=== PATIENT | female | born 1980 | race Caucasian/White ===

== ENCOUNTER 2020-07-03 08:52 | Inpatient (IN) | payer OTHER ==
[~2020-07-03] VITALS: Ht 165.1 cm; Wt 72.5 kg
--- NOTE | 2020-07-03 09:28 | NUR ---
PATIENT WAS GETTING READY FOR WORK AND FELT DIZZY/WEAK NAUSEATED.
--- NOTE | 2020-07-03 09:48 | NUR ---
PATIENT IS WEAK. ORIENTED. HYPOTENSIVE, MD AWARE GETTING FLUIDS ON MONITOR.
[2020-07-03] MEDS ORDERED: SODIUM CHLORIDE 0.9% 1,000ML IVBOLUS ONE ×2 (10:00→11:30)
--- NOTE | 2020-07-03 10:00 | NUR ---
PATIENT CHILLY, PLACED ON BEDSIDE WARMER AND BLANKETS APPLIED
[2020-07-03 10:21] LABS: BASOPHILS % (AUTO) 0 % (0-1); EOSINOPHILS % (AUTO) 1 % (1-7); LYMPHOCYTES % (AUTO) 8 % (22-44); MEAN CORPUSCULAR HEMOGLOBIN 28.1 pg (27.0-34.8); MEAN CORPUSCULAR HGB CONC 32.8 g/dL (32.4-35.8); MEAN PLATELET VOLUME 8.6 fL (7.4-10.4); MONOCYTES % (AUTO) 4 % (2-9); NEUTROPHILS % (AUTO) 88 % (42-75); PLATELET COUNT 502 x10^3/uL (130-400); RED BLOOD COUNT 5.26 x10^6/uL (3.82-5.3); RED CELL DISTRIBUTION WIDTH 16.4 % (9.6-15.2)
[2020-07-03 10:23] LABS: MD NO
[2020-07-03 10:28] LABS: ALBUMIN 3.9 g/dL (3.4-5.0); ANION GAP 16 mmol/L (5-15); CHLORIDE 100 mmol/L (98-107)
[2020-07-03 10:34] LABS: ALKALINE PHOSPHATASE 222 U/L (45-117); BILIRUBIN,TOTAL 3.3 mg/dL (0.2-1.0); CREATININE 1.06 mg/dL (0.55-1.02); TOTAL PROTEIN 8.1 g/dL (6.4-8.2); TROPONIN I < 0.015 ng/mL (0.000-0.045)
[2020-07-03 10:36] LABS: ALANINE AMINOTRANSFERASE 1890 U/L (12-78)
[2020-07-03 11:28] LABS: BASOPHILS % (AUTO) 1 % (0-1); EOSINOPHILS % (AUTO) 0 % (1-7); LYMPHOCYTES % (AUTO) 5 % (22-44); MEAN CORPUSCULAR HEMOGLOBIN 27.9 pg (27.0-34.8); MEAN CORPUSCULAR HGB CONC 32.7 g/dL (32.4-35.8); MEAN PLATELET VOLUME 8.1 fL (7.4-10.4); MONOCYTES % (AUTO) 8 % (2-9); NEUTROPHILS % (AUTO) 86 % (42-75); PLATELET COUNT 445 x10^3/uL (130-400); RED BLOOD COUNT 4.37 x10^6/uL (3.82-5.3); RED CELL DISTRIBUTION WIDTH 16.4 % (9.6-15.2)
[2020-07-03 11:30] LABS: MD NO
--- NOTE | 2020-07-03 11:37 | NUR ---
ultrasound at bedside
[2020-07-03] MEDS ORDERED: DEXTROSE 5% IV ONE ×3 (13:30→19:30)
[2020-07-03] MEDS ORDERED: ACETYLCYSTEINE IV ONE ×3 (13:30→19:30)
--- NOTE | 2020-07-03 13:41 | NUR ---
provider here admitting patient. patient states she has been taking nsaids for years, and recently her headaches worse so she has been taking up to 2 g a day of tylenol. patient aox4, states feeling better.
--- NOTE | 2020-07-03 13:51 | NUR ---
requested acetylcistiene gtt from pharmacy
[2020-07-03] MEDS: LACTATED RINGERS 1,000 ML IV SCH ×2 (14:00→20:40)
[2020-07-03] MEDS ORDERED: SUMATRIPTAN 25 MG TABLET PO PRN (14:00)
[2020-07-03] MEDS ORDERED: METOCLOPRAMIDE 5 MG/ML, 2ML IVPush PRN (14:00)
[2020-07-03] MEDS ORDERED: ENOXAPARIN 40 MG/0.4 ML ONE (14:30)
[2020-07-03] MEDS: ENOXAPARIN 40 MG/0.4 ML SQ SCH (14:33)
[2020-07-03] MEDS ORDERED: METOCLOPRAMIDE 5 MG/ML, 2ML ONE (14:40)
--- NOTE | 2020-07-03 14:44 | NUR ---
got patient a sandwich as requested, then she had abdominal pain. called md toth for medications and she said to just give reglan. will give reglan.
[2020-07-03 14:47] LABS: C-REACTIVE PROTEIN, QUANT 0.54 mg/dL (0.02-0.49)
--- NOTE | 2020-07-03 14:49 | NUR ---
pt has history of taking nishi per gi chart per md
--- NOTE | 2020-07-03 15:42 | NUR ---
pt to rad via [facility]
--- NOTE | 2020-07-03 15:59 | NUR ---
ordered hospital bed
--- NOTE | 2020-07-03 16:07 | NUR ---
patient on hospital bed
--- NOTE | 2020-07-03 17:36 | NUR ---
got patient meal tray
[2020-07-03] MEDS: POTASSIUM CHLORIDE 20 MEQ TAB.ER.PRT PO SCH (17:50)
[2020-07-03] MEDS ORDERED: POTASSIUM CHLORIDE 20 MEQ TAB.ER.PRT ONE (17:50)
--- NOTE | 2020-07-03 17:58 | NUR ---
ATE 35% DINNER, SOME NAUSEA/ABD PAIN.
--- NOTE | 2020-07-03 19:07 | NUR ---
report to jeanette
--- NOTE | 2020-07-03 19:14 | NUR ---
pt resting comfortable, at bedside, no distress at this time. iv intact, and flowing meds.
--- NOTE | 2020-07-03 21:06 | NUR ---
Pt a&o x4, new bag of acetotate hung, after received from pharmacy. no complaints from pt at this time
--- NOTE | 2020-07-03 21:53 | NUR ---
pt sleeping comfortably, no distress. piv intact, no swelling or redness, and flowing well.
--- NOTE | 2020-07-03 23:17 | NUR ---
pt comfortable and resting. ivf meds infusing without problems. at bedside. pt on cr monitor
--- NOTE | 2020-07-04 00:38 | NUR ---
1ST CONTACT C PT. RESTING IN HOSPITAL BED, DENIES ANY NEEDS. CALL LIGHT INREACH. VSS. WILL CTM.
--- NOTE | 2020-07-04 02:47 | NUR ---
hospitalist to bedside to talk with pt. pt is stating she does not want to be admitted to the covid floor because she has an 80 year old father at home. RN explained that it is to her benefit to be admitted and take care of her current medical condition and liver enzymes, and that she will be in a private room. ER MD also talked with pt. waiting for decision at this time. iv site intact, no swelling, no redness, and flowing well. pt in no apparent distress at this time.
[2020-07-04] MEDS ORDERED: morphine SULFATE 10 MG/ML, 1ML ONE (03:12)
[2020-07-04] MEDS: morphine SULFATE 10 MG/ML, 1ML IV PRN ×2 (03:15→07:14)
[2020-07-04 04:57] LABS: BASOPHILS % (AUTO) 1 % (0-1); EOSINOPHILS % (AUTO) 3 % (1-7); LYMPHOCYTES % (AUTO) 12 % (22-44); MEAN CORPUSCULAR HGB CONC 33.4 g/dL (32.4-35.8); MEAN PLATELET VOLUME 8.1 fL (7.4-10.4); MONOCYTES % (AUTO) 11 % (2-9); NEUTROPHILS % (AUTO) 74 % (42-75); PLATELET COUNT 366 x10^3/uL (130-400); RED BLOOD COUNT 3.96 x10^6/uL (3.82-5.3); RED CELL DISTRIBUTION WIDTH 16.2 % (9.6-15.2)
[2020-07-04 05:09] LABS: ALBUMIN 2.4 g/dL (3.4-5.0); ANION GAP 6 mmol/L (5-15); CALCIUM 7.2 mg/dL (8.5-10.1); CHLORIDE 107 mmol/L (98-107); CREATININE 0.55 mg/dL (0.55-1.02)
[2020-07-04 05:13] LABS: MD NO
[2020-07-04 05:15] LABS: ALANINE AMINOTRANSFERASE 1493 U/L (12-78); ALKALINE PHOSPHATASE 137 U/L (45-117); TOTAL PROTEIN 5.2 g/dL (6.4-8.2)
--- NOTE | 2020-07-04 06:49 | NUR ---
Report from Jammie MILLS. Pt resting in bed with eyes closed, resp even and unlabored, SHAMIKA.
--- NOTE | 2020-07-04 07:07 | NUR ---
Pt awake when this RN entered her room. Pt reports "I'm feeling much better, still hurting in my belly." Pt reports RUQ abd pain 01/11. Pt ambulatory around room with steady gait. POC discussed with pt. Pt denies other needs at this time.
[2020-07-04] MEDS ORDERED: POTASSIUM CHLORIDE 20 MEQ TAB.ER.PRT ONE (07:11)
[2020-07-04] MEDS ORDERED: MORPHINE SULFATE 4 MG/ML, 1ML ONE (07:11)
[2020-07-04] MEDS: POTASSIUM CHLORIDE 20 MEQ TAB.ER.PRT PO SCH ×2 (07:14→17:03)
--- NOTE | 2020-07-04 07:17 | NUR ---
Pt medicated for pain per MAR, denies other needs.
--- NOTE | 2020-07-04 08:57 | NUR ---
Pt reports pain improved after medication. pt provided with toothbrush, toothpaste and washcloths per request.
--- NOTE | 2020-07-04 10:00 | NUR ---
Report called to Elvis Leal RN. Floor ready for pt transport.
[2020-07-04 10:43] VITALS: BP 108/66
[2020-07-04] MEDS: LACTATED RINGERS 1,000 ML IV SCH ×2 (12:14→15:01)
[2020-07-04] MEDS: ENOXAPARIN 40 MG/0.4 ML SQ SCH (14:00)
[2020-07-04 15:00] VITALS: BP 110/64
[2020-07-04] MEDS ORDERED: morphine SULFATE 10 MG/ML, 1ML IVPush PRN (15:00)
[2020-07-04 15:44] LABS: AMPHETAMINE SCREEN, URINE Negative (Negative); BARBITURATE SCREEN, URINE Negative (Negative); BENZODIAZEPINE SCREEN, URINE Negative (Negative); CANNABINOID SCREEN, URINE Negative (Negative); COCAINE SCREEN, URINE Negative (Negative); METHADONE SCREEN, URINE Negative (Negative); OPIATE SCREEN, URINE Positive (Negative)
[2020-07-04 19:16] VITALS: BP 125/76
[2020-07-04] MEDS: MORPHINE SULFATE 4 MG/ML, 1ML IVPush PRN (22:19)
[2020-07-04] MEDS: MELATONIN 5 MG TABLET PO PRN (22:31)
[2020-07-05 00:44] VITALS: BP 156/89
[2020-07-05 00:59] VITALS: BP 123/77
[2020-07-05 05:40] LABS: INTERNATIONAL NORMALIZED RATIO 1.82 (0.93-1.1); PROTHROMBIN TIME 19.2 Seconds (9.6-11.5)
[2020-07-05 05:43] LABS: CHLORIDE 105 mmol/L (98-107)
[2020-07-05 05:55] LABS: ALANINE AMINOTRANSFERASE 2611 U/L (12-78); ALBUMIN 2.4 g/dL (3.4-5.0); ALKALINE PHOSPHATASE 133 U/L (45-117); ANION GAP 4 mmol/L (5-15); BILIRUBIN,TOTAL 1.7 mg/dL (0.2-1.0); CALCIUM 7.4 mg/dL (8.5-10.1); CREATININE 0.44 mg/dL (0.55-1.02)
[2020-07-05 07:46] VITALS: BP 127/73
[2020-07-05] MEDS: POTASSIUM CHLORIDE 20 MEQ TAB.ER.PRT PO SCH ×2 (09:50→16:00)
[2020-07-05] MEDS: ACETYLCYSTEINE IV SCH (10:00)
[2020-07-05] MEDS ORDERED: ACETYLCYSTEINE IV SCH (10:00)
[2020-07-05] MEDS ORDERED: DEXTROSE 5% IV SCH (10:00)
[2020-07-05] MEDS: DEXTROSE 5% IV SCH (10:00)
[2020-07-05] MEDS: MORPHINE SULFATE 4 MG/ML, 1ML IVPush PRN ×3 (10:03→23:34)
[2020-07-05 12:56] VITALS: BP 106/68
[2020-07-05 19:10] VITALS: BP 119/74
[2020-07-06 00:56] VITALS: BP 134/80
[2020-07-06] MEDS: ACETYLCYSTEINE IV SCH ×2 (02:10→18:35)
[2020-07-06] MEDS: DEXTROSE 5% IV SCH ×2 (02:10→18:35)
[2020-07-06 04:16] LABS: ALBUMIN 2.4 g/dL (3.4-5.0); ANION GAP 5 mmol/L (5-15); CALCIUM 7.5 mg/dL (8.5-10.1); CHLORIDE 107 mmol/L (98-107)
[2020-07-06 04:27] LABS: ALANINE AMINOTRANSFERASE 2132 U/L (12-78); ALKALINE PHOSPHATASE 133 U/L (45-117); BILIRUBIN,TOTAL 1.1 mg/dL (0.2-1.0); CREATININE 0.58 mg/dL (0.55-1.02); TOTAL PROTEIN 5.3 g/dL (6.4-8.2)
[2020-07-06] MEDS: POTASSIUM CHLORIDE 20 MEQ TAB.ER.PRT PO SCH ×2 (08:18→16:26)
[2020-07-06] MEDS: MORPHINE SULFATE 4 MG/ML, 1ML IVPush PRN ×2 (08:18→17:11)
[2020-07-06 08:21] VITALS: BP 131/77
[2020-07-06 11:41] LABS: INTERNATIONAL NORMALIZED RATIO 1.32 (0.93-1.1)
[2020-07-06 15:40] VITALS: BP 119/77
[2020-07-06 16:27] LABS: ANA SCREEN NEGATIVE (Negative)
[2020-07-06 19:10] VITALS: BP 131/81
[2020-07-07 01:36] VITALS: BP 143/86
[2020-07-07 07:36] VITALS: BP 122/75
[2020-07-07] MEDS: POTASSIUM CHLORIDE 20 MEQ TAB.ER.PRT PO SCH ×2 (07:51→17:27)
[2020-07-07] MEDS: MORPHINE SULFATE 4 MG/ML, 1ML IVPush PRN ×2 (07:51→21:43)
[2020-07-07] MEDS: OMEPRAZOLE 20 MG CAPSULE.DR PO SCH (07:51)
[2020-07-07 10:13] LABS: ALBUMIN 2.8 g/dL (3.4-5.0); ANION GAP 5 mmol/L (5-15); CHLORIDE 106 mmol/L (98-107); CREATININE 0.63 mg/dL (0.55-1.02)
[2020-07-07 10:20] LABS: ALANINE AMINOTRANSFERASE 1777 U/L (12-78); ALKALINE PHOSPHATASE 137 U/L (45-117); TOTAL PROTEIN 6.2 g/dL (6.4-8.2)
[2020-07-07] MEDS: DEXTROSE 5% IV SCH (11:11)
[2020-07-07] MEDS: ACETYLCYSTEINE IV SCH (11:11)
[2020-07-07 14:07] VITALS: BP 106/62
[2020-07-07 18:29] VITALS: BP 123/76
[2020-07-07] MEDS: MELATONIN 5 MG TABLET PO PRN (21:44)
[2020-07-08 00:48] VITALS: BP 146/74
[2020-07-08] MEDS: DEXTROSE 5% IV SCH ×2 (04:17→22:03)
[2020-07-08] MEDS: MORPHINE SULFATE 4 MG/ML, 1ML IVPush PRN ×4 (04:17→23:55)
[2020-07-08] MEDS: ACETYLCYSTEINE IV SCH ×2 (04:17→22:03)
[2020-07-08 07:11] LABS: ALBUMIN 2.9 g/dL (3.4-5.0); ANION GAP 5 mmol/L (5-15); CALCIUM 8.6 mg/dL (8.5-10.1); CHLORIDE 106 mmol/L (98-107)
[2020-07-08 07:24] LABS: ALANINE AMINOTRANSFERASE 1448 U/L (12-78); ALKALINE PHOSPHATASE 133 U/L (45-117); BILIRUBIN,TOTAL 0.9 mg/dL (0.2-1.0); CREATININE 0.56 mg/dL (0.55-1.02); TOTAL PROTEIN 6.4 g/dL (6.4-8.2)
[2020-07-08 07:29] VITALS: BP 133/80
[2020-07-08] MEDS: OMEPRAZOLE 20 MG CAPSULE.DR PO SCH (07:59)
[2020-07-08] MEDS: POTASSIUM CHLORIDE 20 MEQ TAB.ER.PRT PO SCH ×2 (09:55→17:16)
[2020-07-08 12:27] VITALS: BP 116/72
[2020-07-08 18:59] VITALS: BP 117/74
[2020-07-09 01:29] VITALS: BP 116/73
[2020-07-09 06:37] VITALS: BP 120/74
[2020-07-09] MEDS: OMEPRAZOLE 20 MG CAPSULE.DR PO SCH (07:55)
[2020-07-09] MEDS: POTASSIUM CHLORIDE 20 MEQ TAB.ER.PRT PO SCH ×2 (08:31→16:50)
[2020-07-09 08:47] LABS: ALBUMIN 3.1 g/dL (3.4-5.0); BILIRUBIN, DIRECT 0.3 mg/dL (0.1-0.2)
[2020-07-09 08:54] LABS: BILIRUBIN,INDIRECT 0.5 mg/dL (0.0-2.0); BILIRUBIN,TOTAL 0.8 mg/dL (0.2-1.0); TOTAL PROTEIN 6.8 g/dL (6.4-8.2)
[2020-07-09] MEDS: MORPHINE SULFATE 4 MG/ML, 1ML IVPush PRN ×2 (11:40→20:53)
[2020-07-09 13:12] VITALS: BP 108/70
[2020-07-09] MEDS: DEXTROSE 5% IV SCH (13:36)
[2020-07-09] MEDS: ACETYLCYSTEINE IV SCH (13:36)
[2020-07-09 21:00] VITALS: BP 108/70
[2020-07-10 00:22] VITALS: BP 131/78
[2020-07-10] MEDS: DEXTROSE 5% IV SCH (06:15)
[2020-07-10] MEDS: ACETYLCYSTEINE IV SCH (06:15)
[2020-07-10] MEDS: MORPHINE SULFATE 4 MG/ML, 1ML IVPush PRN (06:19)
[2020-07-10] MEDS: OMEPRAZOLE 20 MG CAPSULE.DR PO SCH (06:32)
[2020-07-10 07:56] VITALS: BP 121/77
[2020-07-10 08:14] LABS: CHLORIDE 107 mmol/L (98-107)
[2020-07-10 08:25] LABS: ALANINE AMINOTRANSFERASE 903 U/L (12-78); ALBUMIN 3.2 g/dL (3.4-5.0); ALKALINE PHOSPHATASE 142 U/L (45-117); ANION GAP 3 mmol/L (5-15); BILIRUBIN,TOTAL 0.7 mg/dL (0.2-1.0); CALCIUM 8.4 mg/dL (8.5-10.1); CREATININE 0.58 mg/dL (0.55-1.02); TOTAL PROTEIN 6.9 g/dL (6.4-8.2)
[2020-07-10] MEDS: POTASSIUM CHLORIDE 20 MEQ TAB.ER.PRT PO SCH (08:34)
[2020-07-10] MEDS ORDERED: OMEP-110 PO (11:44)
[2020-07-10] MEDS ORDERED: SUMA25TA3 PO (11:44)
[2020-07-10 12:20] VITALS: BP 104/70
== END 2020-07-10 14:13 | disposition home or self-care (01) | DRG 441 ==
LOC: ED 11:10 → SUATTDRO 13:35 → OBSVTOIN 13:43 → EDIP 13:43 → 3N 07-04 10:45
PROVIDERS: ADMIT Internal Medicine; ATTEND Hospitalist
DX: K71.10 Toxic liver disease with hepatic necrosis, without coma (principal); E43 Unspecified severe protein-calorie malnutrition; B17.9 Acute viral hepatitis, unspecified; Z20.828 Contact with and (suspected) exposure to other viral communicable diseases; B19.20 Unspecified viral hepatitis C without hepatic coma; E86.0 Dehydration; F41.9 Anxiety disorder, unspecified; G43.909 Migraine, unspecified, not intractable, without status migrainosus; R79.89 Other specified abnormal findings of blood chemistry; Z79.899 Other long term (current) drug therapy; Z68.26 Body mass index [BMI] 26.0-26.9, adult
CPT/HCPCS: 36415; 70551; 71045; 76700; 80053; 80074; 80076; 80299; 80307; 82140; 82728; 82787; 82977; 83516; 83605; 83615; 83735; 84100; 84484; 84703; 85025; 85610; 86038; 86140; 87040; 87517; 87522; 87635; 93005; 96365; 96366; 96375; 99285; G0378; J0132; J1650; J7060; J7070; J2270; J2765; J7030; J7120